=== PATIENT | male | born 1955 | race Caucasian/White ===

== ENCOUNTER → 2019-01-30 | Outpatient (CLI) | payer BC ==
--- NOTE | 2019-01-30 14:35 | DIREP ---
PROCEDURE:XRAY KNEE 4 VIEWS COMPARISON:None. INDICATIONS:M25.561 PAIN IN RIGHT KNEE FINDINGS: BONES:No acute fracture. JOINTS:Moderate patellofemoral compartment degenerative joint disease with cyuy-li-uowsysqb degenerative changes of the medial femoral tibial compartment and mild degenerative changes of the lateral femoral tibial compartment. SOFT TISSUES:No sizable suprapatellar joint effusion is identified. OTHER:Moderate superior patellar enthesopathy. CONCLUSION: 1. No acute osseous abnormality. 2. Tricompartmental osteoarthrosis without sizable suprapatellar joint effusion. Dictated by: Jarett Holman M.D. on 01/30/2019 at 02:32 PM
== END | disposition home or self-care (01) ==
LOC: RAD 11:37
PROVIDERS: ATTEND Internal Medicine
DX: M17.11 Unilateral primary osteoarthritis, right knee (principal)
CPT/HCPCS: 73564-RT

== ENCOUNTER → 2019-11-09 | Outpatient (CLI) | payer BC ==
--- NOTE | 2019-11-09 15:03 | PCM.EKG ---
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
== END | disposition home or self-care (01) ==
LOC: RT 11:27
PROVIDERS: ATTEND Internal Medicine
DX: I10 Essential (primary) hypertension (principal)
CPT/HCPCS: 93005

== ENCOUNTER → 2020-02-18 | Outpatient (CLI) | payer BC ==
[~2020-02-18] MED LIST: LEXISCAN IV ONE
--- NOTE | 2020-02-18 18:14 | STRESS ---
DATE OF SERVICE: 02/18/2020 CARDIAC STRESS TEST INDICATION FOR PROCEDURE: Chest pain. Baseline EKG shows sinus bradycardia. Stress EKG shows normal sinus rhythm, unchanged from baseline. At recovery, EKG shows normal sinus rhythm, unchanged from baseline. Baseline heart rate is noted to be 56 beats per minute and gurvinder to 78 beats per minute during stress. At recovery, blood pressure was noted to be 142/61. Baseline heart rate was noted to be 56 beats per minute and gurvinder to 78 beats per minute during stress. At recovery, the heart rate was noted to be 81 beats per minute. Blood pressure and heart rate were appropriate for stress. There were no significant symptoms noted during stress. There were no arrhythmias noted during stress. EKG portion of stress test is negative for myocardial ischemia. Nuclear images reveal homogeneous tracer distribution across all wall segments with no evidence of myocardial ischemia or infarction. Left ventricular ejection fraction is noted to be 74%. EDV is 103 mL, ESV is 27 mL. The left ventricle is normal in size. Gated motion images shows normal wall motion across all segments of the left ventricle. TID is noted to be 1.13. There is no evidence of diaphragmatic attenuation artifact. IMPRESSION: 1. Normal myocardial perfusion imaging with no evidence of myocardial ischemia or infarction. 2. Left ventricular ejection fraction of 74%. 3. This is a negative study. KHUSHI LEON D.O. DR: Jordin JOB# [id number]
== END | disposition home or self-care (01) ==
LOC: RAD 08:33
PROVIDERS: ATTEND Internal Medicine Interventional Cardiology
DX: I08.8 Other rheumatic multiple valve diseases (principal); I10 Essential (primary) hypertension
CPT/HCPCS: 78452; 93017; 93306; A9500; J2785

== ENCOUNTER → 2020-05-22 | Outpatient (CLI) | payer BC ==
--- NOTE | 2020-05-22 22:47 | PRP ---
DATE OF PROCEDURE: 05/22/2020 CAROTID DOPPLER ULTRASOUND INDICATION FOR PROCEDURE: Carotid bruit. RIGHT CAROTID ARTERY SYSTEM: The right common carotid artery has a peak systolic velocity of 103.76 cm/sec. The maximum right internal carotid artery peak systolic velocity is noted to be 106.5 cm/sec. The right external carotid artery has a peak systolic velocity of 222.7 cm/sec. Moderate atheromatous plaque is visualized in the right external carotid artery. The right vertebral artery has a peak systolic velocity of 59 cm/sec with antegrade flow visualized. The right ICA/CCA ratio is noted to be 1.0. LEFT CAROTID ARTERY SYSTEM: The peak systolic velocity of the left common carotid artery is noted to be 91.3 cm/sec. The maximum peak systolic velocity of the left internal carotid artery is noted to be 113.3 cm/sec. The left external carotid artery has a peak systolic velocity of 185 cm/sec. Moderate atheromatous plaque is visualized in the left external carotid artery. The left vertebral artery has a peak systolic velocity of 75 cm/sec with antegrade flow visualized. The left ICA/CCA ratio is noted to be 1.2. IMPRESSION: 1. There is no evidence of hemodynamically significant stenosis in the left internal carotid artery system. 2. There is no evidence of hemodynamically significant stenosis in the right internal carotid artery system. 3. Bilateral external carotid artery is noted to show moderate atheromatous plaques. 4. Bilateral ICA/CCA ratio are within normal limits. KHUSHI LEON D.O. DR: DELANO/michelle JOB# [id number]
--- NOTE | 2020-05-22 22:56 | PRP ---
DATE OF PROCEDURE: 05/22/2020 VENOUS MAPPING ULTRASOUND INDICATION FOR PROCEDURE: Chronic venous insufficiency. RIGHT LOWER EXTREMITY: The right greater saphenous vein measures 11 mm in its maximum diameter. Significant reflux is noted in the right GSV with maximum reflux of 3.2 seconds. The right small saphenous vein measures 2 mm in its maximum diameter. Significant reflux is noted in the right small saphenous vein with maximum reflux of 3.4 seconds. There is no evidence of deep vein thrombosis in the right lower extremity. An incidental finding of Davies cyst measuring 5.0 x 1.5 x 2.8 cm is visualized adjacent to the right popliteal vessels. LEFT LOWER EXTREMITY: The left greater saphenous vein measures 11 mm in its maximum diameter. Significant reflux is noted in the left GSV with maximum reflux of 5.4 seconds. The left small saphenous vein measures 4 mm in its maximum diameter. Significant reflux is also noted in the left small saphenous vein with maximum reflux of 1.1 seconds. There is no evidence of deep vein thrombosis in the left lower extremity. IMPRESSION: 1. The right greater saphenous vein is severely dilated and displays pathological reflux. 2. The right small saphenous vein is normal sized but displays pathological reflux. 3. The left greater saphenous vein is severely dilated and displays pathological reflux. 4. The left small saphenous vein is normal sized but displays pathological reflux. 5. There is no evidence of deep venous thrombosis in the bilateral lower extremities. 6. Incidental finding of a Davies cyst measuring 5.0 x 1.5 x 2.8 cm is visualized adjacent to the right popliteal vessels. RECOMMENDATION: Conservative measures including the use of compression stockings, leg elevation and exercise are recommended if clinically indicated. KHUSHI LEON D.O. DR: DELANO/michelle JOB# [id number]
== END | disposition home or self-care (01) ==
LOC: RAD 14:49
PROVIDERS: ATTEND Internal Medicine Interventional Cardiology
DX: I87.2 Venous insufficiency (chronic) (peripheral) (principal); R09.89 Other specified symptoms and signs involving the circulatory and respiratory systems; I10 Essential (primary) hypertension
CPT/HCPCS: 93880; 93970

== ENCOUNTER 2020-11-10 08:00 | Inpatient (IN) | payer BC ==
[2020-11-05 14:32] VITALS: BP 144/74
--- NOTE | 2020-11-05 14:48 | PCM.EKG ---
[facility] Test Date: 2020-11-05 Test Time: 15:46:59 Pat Name: RADHA MARCUS Department: Room: Gender: M Curriculum Development Coordinator: JUAN : 1955 Requested By: JAYLIN YATES Order Number: [id number] Reading MD: Measurements Intervals Leonard Rate: 60 P: 78 OR: 172 QRS: -37 QRSD: 108 T: 56 QT: 404 QTc: 404 Interpretive Statements Normal sinus rhythm Left axis deviation Compared to ECG 11/09/2019 11:34:14 Left-axis deviation now present Please click the below link to view image of tracing.
[2020-11-05 14:59] LABS: BASOPHIL % 0.8 % (0.0-0.2); EOSINOPHIL # 0.2 10^3/uL (0.0-0.2); LYMPHOCYTES # 1.39 10^3/uL1 (1.0-4.8); LYMPHOCYTES % 26.4 % (24.0-44.0); MEAN CORP HGB 31.1 pg (26-34); MONOCYTES # 0.6 10^3/uL (0.3-0.8); MONOCYTES % 11.6 % (5.0-12.0); NEUTROPHIL # 3.1 10^3/uL (1.8-7.7); PLATELET COUNT 313 10^3/uL (150-400); RED CELL DISTRIBUTION WIDTH 12.2 % (11.5-14.5)
[2020-11-05 15:15] LABS: CALCIUM 9.2 mg/dL (8.4-10.5); CARBON DIOXIDE 25.5 mmol/L (20.0-32)
[2020-11-10] VITALS (13 sets, daily range): BP systolic 142–168; BP diastolic 65–98
[~2020-11-10] VITALS: Ht 172.7 cm; Wt 84.4 kg
[~2020-11-10 08:00] MED LIST changes: +ANCEF ONE; +ASCO500C PO; +ASPI-667 PO; +BACTROBAN OINTMENT TP ONE; +BUSP7.5T5 PO; +CELE200C PO; +CHOL400T12 PO; +CITA10TA4 PO; +DILT180C64 PO; +ESOM20CA PO; +EZET10TA20 PO; +HYDR-3097 PO; +HYDR25TA9 PO; -LEXISCAN IV ONE; +LOSA100T14 PO; +NIFE30TA15 PO; +NS 100ML 100 ML IV ONE; +NS 250ML 250 ML IV ONE; +NS 3000ML IRR IR ONE; +ROSU10TA2 PO; +SODIUM CHLORIDE IRR BOTTLE IR ONE; +THYR60TA4 PO; +TRAM50TA PO; +VITA1CAP PO; +WATER ONE
[2020-11-10] MEDS ORDERED: LIDOCAINE 2% VIAL ONE (08:59)
[2020-11-10] MEDS ORDERED: TORADOL ONE (08:59)
[2020-11-10] MEDS ORDERED: CEPACOL SORE THROAT LOZENGE MM PRN (09:00)
[2020-11-10] MEDS ORDERED: LACTATED RINGERS 1,000 ML IV SCH (09:00)
[2020-11-10] MEDS ORDERED: VERSED ONE (09:00)
[2020-11-10] MEDS ORDERED: SUBLIMAZE ONE (09:00)
[2020-11-10] MEDS ORDERED: ULTRAM PO PRN (09:00)
[2020-11-10] MEDS ORDERED: ZOFRAN ONE (09:01)
[2020-11-10] MEDS ORDERED: DIPRIVAN IV ONE (09:01)
[2020-11-10] MEDS ORDERED: DECADRON ONE (09:02)
[2020-11-10] MEDS ORDERED: NAROPIN 0.5% 5 MG/ML VIAL ONE (09:02)
[2020-11-10] MEDS ORDERED: TRANEXAMIC ACID ONE (09:03)
--- NOTE | 2020-11-10 09:19 | PCM.HP ---
History of Present Illness Reason for Visit: (1) Osteoarthritis of right knee ICD Code: M17.11 - Unilateral primary osteoarthritis, right knee SNOMED: [id number] Was this Problem Present on Ad: Yes-DX present @time ofIP Hx of Present Illness patient complains of right knee pain worsening for the past 2 years. Patient complains of right knee pain for 5 years. Takes Celebrex and Advil for pain. Tried multiple cortisone injections and a Gel One injection with minimal relief. Tried hinge knee brace. Patient is an active adult and unable to do his activities of normal daily living. Travel History [place] RISK:Travel to/contact w: No Review of Systems Constitutional: No: Fever, Chills, Sweats, Weakness, Malaise, Other Eyes: No: Pain, Vision change, Conjunctivae inflammation, Eyelid inflammation, Other, Redness ENT: No: Ear pain, Ear discharge, Nose pain, Nose discharge, Nose congestion, Mouth pain, Mouth swelling, Throat pain, Throat swelling, Other Respiratory: No: Cough, Dry, Shortness of breath, SOB with excertion, Wheezing, Hemoptysis, Pleuritic Pain, Sputum, Wheezing, Other Cardiovascular: No: Chest Pain, Palpitations, Orthopnea, Paroxysmal Noc. Dyspnea, Edema, Lt Headedness, Other Gastrointestinal: No: Nausea, Vomiting, Abdominal Pain, Diarrhea, Constipation, Melena, Hematochezia, Other Genitourinary: No Dysuria, No Frequency, No Incontinence, No Hematuria, No Retention, No Other Musculoskeletal: leg pain (right knee) Skin: No: Rash, Lesions, Jaundice, Bruising, Other Neurological: No: Weakness, Numbness, Incoordination, Change in speech, Confusion, Seizures, Other Allergies: Coded Allergies: No Known Allergies (Unverified , 11/05/20) Scheduled Ascorbic Acid (Vitamin C), 2 CAP PO QD, (Reported) Aspirin (Aspirin), 1 TAB PO DAILY, (Reported) Celecoxib (Celebrex), 1 CAP PO BID, (Reported) Cholecalciferol (Vitamin D3) (Vitamin D-400), 5,000 UNITS PO Q7D, (Reported) Citalopram Hydrobromide (Citalopram Hbr), 1 TAB PO DAILY, (Reported) Diltiazem Hcl (Cartia Xt), 1 CAP PO QD, (Reported) Esomeprazole Magnesium (Nexium), 1 CAP PO DAILY, (Reported) Ezetimibe (Zetia), 1 TAB PO DAILY24, (Reported) Hydrochlorothiazide (Hydrochlorothiazide), 1 TAB PO DAILY, (Reported) Losartan Potassium (Losartan Potassium), 1 TAB PO DAILY, (Reported) Nifedipine (Nifedipine Er), 1 TAB PO DAILY, (Reported) Rosuvastatin 10MG (Crestor 10MG), 1 TAB PO DAILY, (Reported) Thyroid,Pork (Consumer Loan Underwriter Thyroid), 1 TAB PO QD, (Reported) Vitamin B Complex (Vitamin B Complex), 1 EACH PO DAILY24, (Reported) Scheduled PRN Buspirone Hcl (Buspirone Hcl), 1 TAB PO BID PRN for ANXIETY, (Reported) Hydrocodone Bit/Acetaminophen (Roscoe 5-325), 1 TAB PO BID PRN for PAIN 4 - 6, (Reported) Tramadol Hcl (Tramadol Hcl), 1 TAB PO BID PRN for PAIN 4 - 6, (Reported) VTE VTE Risk Total Score: >5 VTE Risk Score VTE Risk: Score 0-1 = Low Risk (Aggressive mobilization; early ambulation; no VTE prophylaxis required) Score 2: Moderate Risk (Intermittent/Pneumatic Compression Device OR Lovenox/Heparin/Coumadin) Score 3-4: High Risk (Intermittent/Pneumatic Compression Device AND Lovenox/Heparin/Coumadin) Score > or =5: Highest Risk (Intermittent/Pneumatic Compression Device AND Lovenox/Heparin/Coumadin) VTE VTE Present on Admission: No Currently receiving anticoagul: No VTE Risk Total Score: >5 Exam General Appearance: Alert, Oriented X3, Cooperative, No acute distress HEENT: Atraumatic, PERRLA, EOMI, Mucous membr. moist/pink Respiratory: Clear to auscultation, Normal air movement Cardiovascular: Regular rate Abdominal: Normal bowel sounds, Soft, No tenderness Extremities: No clubbing, No cyanosis, No edema, Normal pulses, Other (right knee has full extension and 120 degrees flexion. Obvious varus deformilty grade 1 laxity MCL. Muscle strength 5/5) Skin: No rash, No breakdown, No lesions Neuro: Normal gait, Normal speech, Normal tone Psych/Mental Status: Mental status NL, Mood NL Assessment/Plan Assessment/Plan Problems: (1) Osteoarthritis of right knee Status: Chronic ICD Code: M17.11 - Unilateral primary osteoarthritis, right knee SNOMED: [id number] Patient History: Congestive heart failure G8 MOTHER, , Age:60 years and older FH: breast cancer G8 SISTER FH: congenital heart problem G8 SISTER No known health problems G8 SISTER 19 CHILD 19 CHILD No Family History of: Alzheimer's disease Asthma Cerebrovascular disorder Chronic obstructive pulmonary disease Diabetes insipidus Diabetes mellitus Hypertension Parkinson's disease Plan Right knee OA- surgery of right total knee arthroplasty is planned for today 11/10/20. admit inpatient to the med/surg floor continue medications as prescribed PT/OT eval and treat. WBAT RLE, CPM, walker monitor incision monitor pain fall and safety precautions Problem Qualifiers (1) Osteoarthritis of right knee: Osteoarthritis type: primary Qualified Codes: M17.11 - Unilateral primary osteoarthritis, right knee GHULAM HUTCHINSON NP Nov 10, 2020 09:19
[2020-11-10] MEDS ORDERED: NORCO 5MG PO PRN (09:30)
[2020-11-10] MEDS ORDERED: CARDIZEM CD PO SCH (09:30)
[2020-11-10] MEDS ORDERED: MARCAINE SPINAL AMPUL IJ ONE (09:30)
[2020-11-10] MEDS ORDERED: ARMOUR THYROID PO SCH (09:30)
[2020-11-10] MEDS ORDERED: NEURONTIN PO ONE (10:00)
[2020-11-10] MEDS ORDERED: DECADRON IV ONE (10:00)
[2020-11-10] MEDS ORDERED: TYLENOL PO ONE (10:00)
[2020-11-10] MEDS ORDERED: ULTRAM PO ONE (10:00)
[2020-11-10] MEDS ORDERED: CELEBREX PO ONE (10:00)
[2020-11-10] MEDS ORDERED: DEXAMETHASONE 10 MG/ML VIAL ONE (10:04)
[2020-11-10] MEDS: LACTATED RINGERS 1,000 ML IV SCH ×2 (10:20→16:35)
--- NOTE | 2020-11-10 11:13 | NUR ---
DISCHARGE PLAN CM VISITED WITH PATIENT REGARDING D/C PLAN AND GOAL. PATIENT LIVES AT HOME ALONE. HIS SISTER WILL BE IN TOWN ON TUESDAY TO HELP HIM AROUND HIS HOUSE AND HE HAS SOME FRIENDS THAT WILL CHECK UP ON HIM. HE HAS A P/B CUFF, SC, AND PULSE OXIMETER IN PLACE. HE WILL NEED A WALKER ON D/C. ORDER FAXED TO [facility]. HE REQUESTED TO F/U WITH MORELIA YATES AT [facility] PT. APPOINTMENT IS SCHEDULED FOR TUESDAY AT 3PM. DISCHARGE GOAL IS FOR PATIENT TO D/C BACK HOME AND F/U WITH [facility] PT AN OP.
[2020-11-10] MEDS ORDERED: EXPAREL 266 MG/20 ML VIAL IJ ONE (12:00)
[2020-11-10] MEDS ORDERED: ANCEF 2 GM/D5W 50ML IV SCH (14:00)
--- NOTE | 2020-11-10 14:47 | OPH ---
DATE OF SURGERY: 11/10/2020 PREOPERATIVE DIAGNOSIS: Osteoarthritis of the right knee. POSTOPERATIVE DIAGNOSIS: Osteoarthritis of the right knee. OPERATIVE PROCEDURE: Right total knee arthroplasty using Medacta Sphere knee, size 4 femur, a size 5 tibia, 10 mm insert, a size 2 dome patella. All components were cemented. SURGEON: Prem Gonzalez MD ANESTHESIA: Spinal. TOURNIQUET TIME: 67 minutes at 300 mmHg. DRAINS: None. BLOOD LOSS: 400 mL. DESCRIPTION OF INDICATIONS: A 65-year-old male with pain about the right knee for the last 5 years. Pain is getting progressively worse. He takes Celebrex as well as Advil for the pain. He has had multiple cortisone injections as well as Gel-One injections. He has tried home physical therapy exercises as well as off the shelf bracing. He is unable to do his activities of daily living because of pain about the knee. Right knee has -10 degrees of full extension with 120 degrees of flexion, obvious varus deformity, grade 1 laxity of his medial collateral ligament. X-rays show that he is [id number]-xz-oirm medially as well as about the patellofemoral joint. The patient was taken to the operating room today for right total knee arthroplasty for pain relief. DESCRIPTION OF PROCEDURE: The patient was placed on the operating table in the supine position after spinal anesthetic was given. The right thigh was padded and a tourniquet was applied. Right lower extremity was then sterilely prepped and draped. The patient had the leg exsanguinated with an Esmarch and the tourniquet was inflated to 300 mmHg. The knee was flexed to 90 degrees. An anterior incision was made. Incision was taken through the skin and the subcutaneous tissues. Full thickness flaps were developed medially and laterally. Medial parapatellar arthrotomy was performed. The patella was deviated laterally. The capsule and MCL were released around the posterior medial corner of the proximal tibia in a subperiosteal manner. Medial and lateral meniscectomies were performed. The anterior and posterior cruciate ligaments were excised. The patient had intramedullary drill hole made about the distal femur. The cutting block that was attached to the intramedullary michaela was placed about the distal end of the femur once the intramedullary michaela was placed down the shaft of the femur. The cutting block was then pinned into position. It was set at 9 mm and 6 degrees of valgus. Distal femoral cut was then made with the power saw. The tibia was subluxed anteriorly with a bent knee retractor. Intramedullary drill hole was made about the tibia and the intramedullary michaela was placed down the shaft of the tibia. The cutting guide for the tibia was then adjusted for posterior slope, varus, valgus rotation and depth of cut. Once all the parameters were met, the cutting block was pinned into position. Tibial cut was then made with the power saw. The attention was turned back to the femur. The #2 jig was applied and it measured a size 4. The size 4 cutting jig was placed about the distal femur and held into position with 2 screws and 2 pins. The anterior and posterior femoral cuts as well as the chamfer cuts were made. The patient then had the tibia trialled with a size 5. There was good coverage with the 5 tibial component. The central drill hole was made and the cruciate punch was used to stabilize the tibial component. The patient then had a trial reduction done with a 5 tibia, 4 femur, a 10 mm insert. The knee went out into full extension and 120 degrees of passive flexion. There was excellent medial and lateral stability throughout the range of motion. He had good anterior and posterior stability at 90 degrees of flexion. The patella was everted. It was cut at 7 mm. There were still 15 mm of patella left. The drill holes were made and size 2 patella had the best fit. There was good tracking of the patella with flexion and extension. Final medial and lateral femoral drill holes were made. The femoral sulcus cut was made. The trial components were then all removed from the knee. The Exparel was injected into the soft tissue. The knee was copiously irrigated and the bone ends were dried. A size 5 tibial component was cemented into position. The 10 mm insert was impacted into position and secured with an anterior screw. The size 4 femoral component was cemented as well as the patella. Once all the excess cement was removed and the cement had hardened, then the tourniquet was released. The bleeding was controlled with the Aquamantys device. The joint had been irrigated with Betadine-containing solution for 3 minutes. The capsule was then closed with a #2 PDS in an interrupted [id number] manner. The subcutaneous was closed with a 2-0 barbed Monocryl in a running manner and the skin was closed with modesta. A suction Prevena type dressing was applied, reinforced with 4 x 4's, cast padding and an Eduard wrap. The patient was sent to recovery in stable condition. Prem Gonzalez MD DR: CHRISTOPHER/michelle JOB# [id number]
[2020-11-10] MEDS ORDERED: TORADOL IV PRN (15:00)
--- NOTE | 2020-11-10 15:10 | NUR ---
PATIENT ARRIVED TO UNIT VIA BED. S/P R TKA. NON REMOVABLE PREVENA DRESSING CDI. ICEMAN IN PLACE. BILAT FOOT SCDS ON. CMS+. ZAVALA CATHETER PATENT, DRAINING CLEAR, STRAW COLORED URINE. REPORT RECEIVED FROM MARY BETH TELLO.
[2020-11-10] MEDS: PEPCID PO SCH (15:55)
[2020-11-10] MEDS: COLACE PO SCH (15:55)
[2020-11-10] MEDS: ZETIA PO SCH (15:55)
--- NOTE | 2020-11-10 16:09 | PRM.PN ---
Subjective Subjective Date: Nov 10, 2020 Time: 16:08 Subjective Awake and alert No pain VSS NVM+ Able to perform SLR Stable Patient History: Congestive heart failure G8 MOTHER, , Age:60 years and older FH: breast cancer G8 SISTER FH: congenital heart problem G8 SISTER No known health problems G8 SISTER 19 CHILD 19 CHILD No Family History of: Alzheimer's disease Asthma Cerebrovascular disorder Chronic obstructive pulmonary disease Diabetes insipidus Diabetes mellitus Hypertension Parkinson's disease VTE VTE Risk Total Score: >5 VTE Risk Score VTE Risk: Score 0-1 = Low Risk (Aggressive mobilization; early ambulation; no VTE prophylaxis required) Score 2: Moderate Risk (Intermittent/Pneumatic Compression Device OR Lovenox/Heparin/Coumadin) Score 3-4: High Risk (Intermittent/Pneumatic Compression Device AND Lovenox/Heparin/Coumadin) Score > or =5: Highest Risk (Intermittent/Pneumatic Compression Device AND Lovenox/Heparin/Coumadin) Review of Systems Constitutional: No: Fever, Chills, Sweats, Weakness, Malaise, Other Eyes: No: Pain, Vision change, Conjunctivae inflammation, Eyelid inflammation, Other, Redness ENT: No: Ear pain, Ear discharge, Nose pain, Nose discharge, Nose congestion, Mouth pain, Mouth swelling, Throat pain, Throat swelling, Other Respiratory: No: Cough, Dry, Shortness of breath, SOB with excertion, Wheezing, Hemoptysis, Pleuritic Pain, Sputum, Wheezing, Other Cardiovascular: No: Chest Pain, Palpitations, Orthopnea, Paroxysmal Noc. Dyspnea, Edema, Lt Headedness, Other Gastrointestinal: No: Nausea, Vomiting, Abdominal Pain, Diarrhea, Constipation, Melena, Hematochezia, Other Genitourinary: No Dysuria, No Frequency, No Incontinence, No Hematuria, No Retention, No Other Musculoskeletal: leg pain (right knee) Skin: No: Rash, Lesions, Jaundice, Bruising, Other Neurological: No: Weakness, Numbness, Incoordination, Change in speech, Confusion, Seizures, Other Allergies: Coded Allergies: No Known Allergies (Unverified , 11/05/20) Scheduled Ascorbic Acid (Vitamin C), 2 CAP PO QD, (Reported) Aspirin (Aspirin), 1 TAB PO DAILY, (Reported) Celecoxib (Celebrex), 1 CAP PO BID, (Reported) Cholecalciferol (Vitamin D3) (Vitamin D-400), 5,000 UNITS PO Q7D, (Reported) Citalopram Hydrobromide (Citalopram Hbr), 1 TAB PO DAILY, (Reported) Diltiazem Hcl (Cartia Xt), 1 CAP PO QD, (Reported) Esomeprazole Magnesium (Nexium), 1 CAP PO DAILY, (Reported) Ezetimibe (Zetia), 1 TAB PO DAILY24, (Reported) Hydrochlorothiazide (Hydrochlorothiazide), 1 TAB PO DAILY, (Reported) Losartan Potassium (Losartan Potassium), 1 TAB PO DAILY, (Reported) Nifedipine (Nifedipine Er), 1 TAB PO DAILY, (Reported) Rosuvastatin 10MG (Crestor 10MG), 1 TAB PO DAILY, (Reported) Thyroid,Pork ([employer] Thyroid), 1 TAB PO QD, (Reported) Vitamin B Complex (Vitamin B Complex), 1 EACH PO DAILY24, (Reported) Scheduled PRN Buspirone Hcl (Buspirone Hcl), 1 TAB PO BID PRN for ANXIETY, (Reported) Hydrocodone Bit/Acetaminophen ([place] 5-325), 1 TAB PO BID PRN for PAIN 4 - 6, (Reported) Tramadol Hcl (Tramadol Hcl), 1 TAB PO BID PRN for PAIN 4 - 6, (Reported) Objective Vitals and I/O Vital Sign - Last 24 Hours 11/10/20 11/10/20 11/10/20 11/10/20 09:58 09:58 14:28 14:38 Temp 97.6 97.2 Pulse 60 66 Resp 16 18 18 B/P (MAP) 156/65 (95) 162/76 (104) 165/90 (115) Pulse Ox 98 98 98 O2 Delivery Room Air Room Air Room Air Room Air 11/10/20 11/10/20 14:48 14:58 Pulse 66 65 Resp 18 18 B/P (MAP) 165/98 (120) 143/90 (107) Pulse Ox 98 97 O2 Delivery Room Air Room Air General: Alert, Oriented X3, Cooperative, No acute distress HEENT: Atraumatic, PERRLA, EOMI, Mucous membr. moist/pink Lungs: Clear to auscultation, Normal air movement Heart: Regular rate Abdomen: Normal bowel sounds, Soft, No tenderness Extremities: No clubbing, No cyanosis, No edema, Normal pulses, Other (right knee has full extension and 120 degrees flexion. Obvious varus deformilty grade 1 laxity MCL. Muscle strength 5/5) Neuro: Normal gait, Normal speech, Normal tone Psych/Mental Status: Mental status NL, Mood NL All Results(Lab/Rad) Current Medications Medications (Trade) Dose Ordered Sig/Lisa Route PRN Reason Start Time Stop Time Status Last Admin Dose Admin Mupirocin (Bactroban Ointment) 1 gm OT ONCE TP 11/10/20 06:00 11/10/20 10:22 DC 11/10/20 10:30 Sodium Chloride 100 ml @ ud STK-MED ONCE IV 11/08/20 12:18 11/08/20 12:18 DC Cefazolin Sodium (Ancef) 1 gm STK-MED ONCE .ROUTE 11/08/20 12:18 11/08/20 12:18 DC Sodium Chloride (Sodium Chloride Irr Bottle) 1,000 ml STK-MED ONCE IR 11/10/20 07:45 11/10/20 07:46 DC Sterile Water (Water) 1,000 ml STK-MED ONCE .ROUTE 11/10/20 07:45 11/10/20 07:46 DC Sodium Chloride 100 ml @ ud STK-MED ONCE IV 11/10/20 07:45 11/10/20 07:46 DC Sodium Chloride 250 ml @ ud STK-MED ONCE IV 11/10/20 07:46 11/10/20 07:46 DC Sodium Chloride (NS 3000ml Irr) 3,000 ml STK-MED ONCE IR 11/10/20 07:46 11/10/20 07:46 DC Lidocaine HCl (Lidocaine 2% Vial) 500 mg STK-MED ONCE .ROUTE 11/10/20 08:59 11/10/20 08:59 DC Ketorolac Tromethamine (Toradol) 30 mg STK-MED ONCE .ROUTE 11/10/20 08:59 11/10/20 08:59 DC Fentanyl Citrate (Sublimaze) 50 mcg STK-MED ONCE .ROUTE 11/10/20 09:00 11/10/20 09:01 DC Propofol (Diprivan) 200 mg STK-MED ONCE IV 11/10/20 09:01 11/10/20 09:01 DC Ondansetron HCl (Zofran) 4 mg STK-MED ONCE .ROUTE 11/10/20 09:01 11/10/20 09:02 DC Ropivacaine (Naropin 0.5% 5 Mg/ml Vial) 150 mg STK-MED ONCE .ROUTE 11/10/20 09:02 11/10/20 09:03 DC Tranexamic Acid (Tranexamic Acid) 1,000 mg STK-MED ONCE .ROUTE 11/10/20 09:03 11/10/20 09:03 DC Tramadol HCl (Ultram) 50 mg Q6H PO 11/10/20 09:00 12/10/20 08:59 Tramadol HCl (Ultram) 100 mg Q6H PRN PO PAIN 4 - 6 11/10/20 09:00 12/10/20 08:59 Rivaroxaban (Xarelto) 10 mg DAILY PO 11/11/20 09:00 12/11/20 08:59 Docusate Sodium (Colace) 100 mg DAILY PO 11/10/20 09:00 12/10/20 08:59 Throat Lozenges (Cepacol Sore Throat Lozenge) 1 each PRN PRN MM SORE THROAT 11/10/20 09:00 12/10/20 08:59 Famotidine (Pepcid) 20 mg DAILY PO 11/10/20 09:00 12/10/20 08:59 Cefazolin Sodium/ Dextrose (Ancef 2 Gm/D5W 50ml) 2 gm Q8 IV 11/10/20 14:00 11/10/20 12:00 DC Citalopram Hydrobromide (CeleXA) 10 mg DAILY PO 11/11/20 09:00 12/11/20 08:59 Diltiazem HCl (Cardizem Cd) 180 mg QD PO 11/10/20 09:30 11/10/20 14:44 DC EZETIMIBE (Zetia) 10 mg DAILY PO 11/10/20 09:30 12/10/20 09:29 Hydrochlorothiazide (Hydrochlorothiazide) 25 mg DAILY PO 11/11/20 09:00 12/11/20 08:59 Acetaminophen/ Hydrocodone Bitart ([place] 5mg) 1 ea BID PRN PO PAIN 4 - 6 11/10/20 09:30 12/10/20 09:29 Losartan Potassium (Cozaar) 100 mg DAILY PO 11/11/20 09:00 12/11/20 08:59 Nifedipine (Procardia) 30 mg DAILY PO 11/11/20 09:00 12/11/20 08:59 Rosuvastatin Calcium (Crestor) 10 mg DAILY PO 11/11/20 09:00 12/11/20 08:59 Thyroid ([place] Thyroid) 60 mg QD PO 11/10/20 09:30 11/10/20 14:43 DC Bupivacaine HCl/ Dextrose ([place] Spinal Ampul) 2 ml STK-MED ONCE IJ 11/10/20 09:30 11/10/20 09:30 DC Celecoxib (Celebrex) 400 mg OT ONCE PO 11/10/20 10:00 11/10/20 10:22 DC 11/10/20 11:04 Gabapentin (Neurontin) 600 mg OT ONCE PO 11/10/20 10:00 11/10/20 10:35 DC 11/10/20 11:04 Tramadol HCl (Ultram) 100 mg OT ONCE PO 11/10/20 10:00 11/10/20 10:36 DC 11/10/20 11:05 Acetaminophen (Tylenol) 1,000 mg OT ONCE PO 11/10/20 10:00 11/10/20 11:36 DC 11/10/20 11:05 Cefazolin Sodium/ Dextrose 50 ml @ 50 mls/hr Q8 IV 11/10/20 20:00 11/11/20 06:59 Ketorolac Tromethamine (Toradol) 30 mg Q6H PRN IV PAIN 7 - 10 11/10/20 15:00 11/15/20 14:59 Acetaminophen (Tylenol) 1,000 mg Q6HR PO 11/10/20 18:00 12/10/20 17:59 Thyroid ([place] Thyroid) 60 mg DAILY PO 11/11/20 09:00 12/10/20 09:29 Diltiazem HCl (Cardizem Cd) 180 mg DAILY PO 11/11/20 09:00 12/10/20 09:29 Course Vitals & review Data Vital Sign - Last 24 Hours 11/10/20 11/10/20 11/10/20 11/10/20 09:58 09:58 14:28 14:38 Temp 97.6 97.2 Pulse 60 66 Resp 16 18 18 B/P (MAP) 156/65 (95) 162/76 (104) 165/90 (115) Pulse Ox 98 98 98 O2 Delivery Room Air Room Air Room Air Room Air 11/10/20 11/10/20 14:48 14:58 Pulse 66 65 Resp 18 18 B/P (MAP) 165/98 (120) 143/90 (107) Pulse Ox 98 97 O2 Delivery Room Air Room Air Current Medications Medications (Trade) Dose Ordered Sig/Lisa PRN Reason Start Time Stop Time Status Last Admin Acetaminophen (Tylenol) 1,000 mg Q6HR 11/10/20 18:00 12/10/20 17:59 Acetaminophen/ Hydrocodone Bitart ([place] 5mg) 1 ea BID PRN PAIN 4 - 6 11/10/20 09:30 12/10/20 09:29 Cefazolin Sodium/ Dextrose 50 ml @ 50 mls/hr Q8 11/10/20 20:00 11/11/20 06:59 Citalopram Hydrobromide (CeleXA) 10 mg DAILY 11/11/20 09:00 12/11/20 08:59 Diltiazem HCl (Cardizem Cd) 180 mg DAILY 11/11/20 09:00 12/10/20 09:29 Docusate Sodium (Colace) 100 mg DAILY 11/10/20 09:00 12/10/20 08:59 EZETIMIBE (Zetia) 10 mg DAILY 11/10/20 09:30 12/10/20 09:29 Famotidine (Pepcid) 20 mg DAILY 11/10/20 09:00 12/10/20 08:59 Hydrochlorothiazide (Hydrochlorothiazide) 25 mg DAILY 11/11/20 09:00 12/11/20 08:59 Ketorolac Tromethamine (Toradol) 30 mg Q6H PRN PAIN 7 - 10 11/10/20 15:00 11/15/20 14:59 Losartan Potassium (Cozaar) 100 mg DAILY 11/11/20 09:00 12/11/20 08:59 Nifedipine (Procardia) 30 mg DAILY 11/11/20 09:00 12/11/20 08:59 Rivaroxaban (Xarelto) 10 mg DAILY 11/11/20 09:00 12/11/20 08:59 Rosuvastatin Calcium (Crestor) 10 mg DAILY 11/11/20 09:00 12/11/20 08:59 Throat Lozenges (Cepacol Sore Throat Lozenge) 1 each PRN PRN SORE THROAT 11/10/20 09:00 12/10/20 08:59 Thyroid ([place] Thyroid) 60 mg DAILY 11/11/20 09:00 12/10/20 09:29 Tramadol HCl (Ultram) 50 mg Q6H 11/10/20 09:00 12/10/20 08:59 Tramadol HCl (Ultram) 100 mg Q6H PRN PAIN 4 - 6 11/10/20 09:00 12/10/20 08:59 O2 Sat by Pulse Oximetry: 97 Assessment/Plan Assessment/Plan Assessment/Plan Right knee OA- surgery of right total knee arthroplasty is planned for today 11/10/20. admit inpatient to the med/surg floor continue medications as prescribed PT/OT eval and treat. WBAT RLE, CPM, walker monitor incision monitor pain fall and safety precautions Plan Right knee OA- surgery of right total knee arthroplasty is planned for today 11/10/20. admit inpatient to the med/surg floor continue medications as prescribed PT/OT eval and treat. WBAT RLE, CPM, walker monitor incision monitor pain fall and safety precautions JUDY MELENDEZ MD Nov 10, 2020 16:09
--- NOTE | 2020-11-10 16:10 | DIREP ---
PROCEDURE:XRAY KNEE 2 VWS-RT COMPARISON:None. INDICATIONS:POST OP KNEE FINDINGS: BONES:Knee replacement seen. JOINTS:Alignment appears appropriate. SOFT TISSUES:[place] anteriorly. Soft tissue swelling and gas noted. OTHER:No additional findings. CONCLUSION:Knee replacement as above. Dictated by: Jose Mello MD on 11/10/2020 at 04:07 PM
[2020-11-10] MEDS: ULTRAM PO SCH ×3 (16:34→20:12)
[2020-11-10] MEDS: TYLENOL PO SCH (18:07)
[2020-11-10] MEDS: ANCEF 2 GM/D5W 50ML 50 ML IV SCH ×2 (20:12→22:00)
[2020-11-11] MEDS: TYLENOL PO SCH ×5 (00:19→23:05)
[2020-11-11 00:24] VITALS: BP 146/78
[2020-11-11] MEDS: LACTATED RINGERS 1,000 ML IV SCH ×3 (02:03→21:30)
[2020-11-11] MEDS: ULTRAM PO SCH ×4 (03:08→21:30)
[2020-11-11] MEDS: ANCEF 2 GM/D5W 50ML 50 ML IV SCH (03:08)
[2020-11-11 04:03] VITALS: BP 165/83
[2020-11-11 04:51] LABS: RED CELL DISTRIBUTION WIDTH 12.1 % (11.5-14.5)
[2020-11-11 08:22] VITALS: BP 174/79
--- NOTE | 2020-11-11 08:35 | PCM.HP ---
History of Present Illness Reason for Visit: (1) Osteoarthritis of right knee ICD Code: M17.11 - Unilateral primary osteoarthritis, right knee SNOMED: [id number] Was this Problem Present on Ad: Yes-DX present @time ofIP Hx of Present Illness patient complains of right knee pain worsening for the past 2 years. Patient complains of right knee pain for 5 years. Takes Celebrex and Advil for pain. Tried multiple cortisone injections and a Gel One injection with minimal relief. Tried hinge knee brace. Patient is an active adult and unable to do his activities of normal daily living. Past Medical History PMH-Cardiac: (1) Osteoarthritis of right knee Status: Chronic ICD Code: M17.11 - Unilateral primary osteoarthritis, right knee SNOMED: [id number] [facility]-ANODIZER: (1) Osteoarthritis of right knee Status: Chronic ICD Code: M17.11 - Unilateral primary osteoarthritis, right knee SNOMED: [id number] [facility]-GI: (1) Osteoarthritis of right knee ICD Code: M17.11 - Unilateral primary osteoarthritis, right knee SNOMED: [id number] [facility]-Heme/Onc: (1) Osteoarthritis of right knee Status: Chronic ICD Code: M17.11 - Unilateral primary osteoarthritis, right knee SNOMED: [id number] [facility]-Hepatobiliary: (1) Osteoarthritis of right knee Status: Chronic ICD Code: M17.11 - Unilateral primary osteoarthritis, right knee SNOMED: [id number] [facility]-Psych: (1) Osteoarthritis of right knee Status: Chronic ICD Code: M17.11 - Unilateral primary osteoarthritis, right knee SNOMED: [id number] [facility]-Musculoskeletal: (1) Osteoarthritis of right knee Status: Chronic ICD Code: M17.11 - Unilateral primary osteoarthritis, right knee SNOMED: [id number] [facility]-Rheumatologic: (1) Osteoarthritis of right knee Status: Chronic ICD Code: M17.11 - Unilateral primary osteoarthritis, right knee SNOMED: [id number] PM-Infectious disease: (1) Osteoarthritis of right knee Status: Chronic ICD Code: M17.11 - Unilateral primary osteoarthritis, right knee SNOMED: [id number] PM-ENT: (1) Osteoarthritis of right knee Status: Chronic ICD Code: M17.11 - Unilateral primary osteoarthritis, right knee SNOMED: [id number] [facility]-Renal/: (1) Osteoarthritis of right knee Status: Chronic ICD Code: M17.11 - Unilateral primary osteoarthritis, right knee SNOMED: [id number] [facility]-Endocrine: (1) Osteoarthritis of right knee Status: Chronic ICD Code: M17.11 - Unilateral primary osteoarthritis, right knee SNOMED: [id number] [facility]-Grav: (1) Osteoarthritis of right knee Status: Chronic ICD Code: M17.11 - Unilateral primary osteoarthritis, right knee SNOMED: [id number] [facility]-Para: (1) Osteoarthritis of right knee Status: Chronic ICD Code: M17.11 - Unilateral primary osteoarthritis, right knee SNOMED: [id number] [facility]-Ab: (1) Osteoarthritis of right knee Status: Chronic ICD Code: M17.11 - Unilateral primary osteoarthritis, right knee SNOMED: [id number] Travel History EBOLA RISK:Travel to/contact w: No Review of Systems Constitutional: No: Fever, Chills, Sweats, Weakness, Malaise, Other Eyes: No: Pain, Vision change, Conjunctivae inflammation, Eyelid inflammation, Other, Redness ENT: No: Ear pain, Ear discharge, Nose pain, Nose discharge, Nose congestion, Mouth pain, Mouth swelling, Throat pain, Throat swelling, Other Respiratory: No: Cough, Dry, Shortness of breath, SOB with excertion, Wheezing, Hemoptysis, Pleuritic Pain, Sputum, Wheezing, Other Cardiovascular: No: Chest Pain, Palpitations, Orthopnea, Paroxysmal Noc. Dyspnea, Edema, Lt Headedness, Other Gastrointestinal: No: Nausea, Vomiting, Abdominal Pain, Diarrhea, Constipation, Melena, Hematochezia, Other Genitourinary: No Dysuria, No Frequency, No Incontinence, No Hematuria, No Retention, No Other Musculoskeletal: leg pain (right knee) Skin: No: Rash, Lesions, Jaundice, Bruising, Other Neurological: No: Weakness, Numbness, Incoordination, Change in speech, Confusion, Seizures, Other Allergies: Coded Allergies: No Known Allergies (Unverified , 11/05/20) Scheduled Ascorbic Acid (Vitamin C), 2 CAP PO QD, (Reported) Aspirin (Aspirin), 1 TAB PO DAILY, (Reported) Celecoxib (Celebrex), 1 CAP PO BID, (Reported) Cholecalciferol (Vitamin D3) (Vitamin D-400), 5,000 UNITS PO Q7D, (Reported) Citalopram Hydrobromide (Citalopram Hbr), 1 TAB PO DAILY, (Reported) Diltiazem Hcl (Cartia Xt), 1 CAP PO QD, (Reported) Esomeprazole Magnesium (Nexium), 1 CAP PO DAILY, (Reported) Ezetimibe (Zetia), 1 TAB PO DAILY24, (Reported) Hydrochlorothiazide (Hydrochlorothiazide), 1 TAB PO DAILY, (Reported) Losartan Potassium (Losartan Potassium), 1 TAB PO DAILY, (Reported) Nifedipine (Nifedipine Er), 1 TAB PO DAILY, (Reported) Rosuvastatin 10MG (Crestor 10MG), 1 TAB PO DAILY, (Reported) Thyroid,Pork ([employer] Thyroid), 1 TAB PO QD, (Reported) Vitamin B Complex (Vitamin B Complex), 1 EACH PO DAILY24, (Reported) Scheduled PRN Buspirone Hcl (Buspirone Hcl), 1 TAB PO BID PRN for ANXIETY, (Reported) Hydrocodone Bit/Acetaminophen ([place] 5-325), 1 TAB PO BID PRN for PAIN 4 - 6, (Reported) Tramadol Hcl (Tramadol Hcl), 1 TAB PO BID PRN for PAIN 4 - 6, (Reported) VTE VTE Risk Total Score: >5 VTE Risk Score VTE Risk: Score 0-1 = Low Risk (Aggressive mobilization; early ambulation; no VTE prophylaxis required) Score 2: Moderate Risk (Intermittent/Pneumatic Compression Device OR Lovenox/Heparin/Coumadin) Score 3-4: High Risk (Intermittent/Pneumatic Compression Device AND Lovenox/Heparin/Coumadin) Score > or =5: Highest Risk (Intermittent/Pneumatic Compression Device AND Lovenox/Heparin/Coumadin) VTE VTE Present on Admission: No Currently receiving anticoagul: No VTE Risk Total Score: >5 Exam Vital Signs Vital Signs Date Time Temp Pulse Resp B/P (MAP) Pulse Ox O2 Delivery O2 Flow Rate FiO2 11/11/20 08:22 97.7 65 18 174/79 (110) 98 11/11/20 07:51 Room Air Assessment/Plan Assessment/Plan Assessment/Plan Right knee OA- surgery of right total knee arthroplasty is planned for today 11/10/20. admit inpatient to the med/surg floor continue medications as prescribed PT/OT eval and treat. WBAT RLE, CPM, walker monitor incision monitor pain fall and safety precautions Patient History: Congestive heart failure G8 MOTHER, , Age:60 years and older FH: breast cancer G8 SISTER FH: congenital heart problem G8 SISTER No known health problems G8 SISTER 19 CHILD 19 CHILD No Family History of: Alzheimer's disease Asthma Cerebrovascular disorder Chronic obstructive pulmonary disease Diabetes insipidus Diabetes mellitus Hypertension Parkinson's disease Plan Right knee OA- surgery of right total knee arthroplasty is planned for today 11/10/20. admit inpatient to the med/surg floor continue medications as prescribed PT/OT eval and treat. WBAT RLE, CPM, walker monitor incision monitor pain fall and safety precautions Problem Qualifiers (1) Osteoarthritis of right knee: Osteoarthritis type: primary Qualified Codes: M17.11 - Unilateral primary osteoarthritis, right knee GHULAM HUTCHINSON NP Nov 11, 2020 08:35
--- NOTE | 2020-11-11 08:38 | PRM.PN ---
Subjective Subjective Date: Nov 11, 2020 Time: 08:35 Subjective patient sitting in bed, appetite good pain controlled right knee dressing intact VSS, labs reviewed- stable PT/OT will eval patient today Patient History: Congestive heart failure G8 MOTHER, , Age:60 years and older FH: breast cancer G8 SISTER FH: congenital heart problem G8 SISTER No known health problems G8 SISTER 19 CHILD 19 CHILD No Family History of: Alzheimer's disease Asthma Cerebrovascular disorder Chronic obstructive pulmonary disease Diabetes insipidus Diabetes mellitus Hypertension Parkinson's disease VTE VTE Risk Total Score: >5 VTE Risk Score VTE Risk: Score 0-1 = Low Risk (Aggressive mobilization; early ambulation; no VTE prophylaxis required) Score 2: Moderate Risk (Intermittent/Pneumatic Compression Device OR Lovenox/Heparin/Coumadin) Score 3-4: High Risk (Intermittent/Pneumatic Compression Device AND Lovenox/Heparin/Coumadin) Score > or =5: Highest Risk (Intermittent/Pneumatic Compression Device AND Lovenox/Heparin/Coumadin) Review of Systems Constitutional: No: Fever, Chills, Sweats, Weakness, Malaise, Other Eyes: No: Pain, Vision change, Conjunctivae inflammation, Eyelid inflammation, Other, Redness ENT: No: Ear pain, Ear discharge, Nose pain, Nose discharge, Nose congestion, Mouth pain, Mouth swelling, Throat pain, Throat swelling, Other Respiratory: No: Cough, Dry, Shortness of breath, SOB with excertion, Wheezing, Hemoptysis, Pleuritic Pain, Sputum, Wheezing, Other Cardiovascular: No: Chest Pain, Palpitations, Orthopnea, Paroxysmal Noc. Dyspnea, Edema, Lt Headedness, Other Gastrointestinal: No: Nausea, Vomiting, Abdominal Pain, Diarrhea, Constipation, Melena, Hematochezia, Other Genitourinary: No Dysuria, No Frequency, No Incontinence, No Hematuria, No Retention, No Other Musculoskeletal: leg pain (right knee dressing ) Skin: No: Rash, Lesions, Jaundice, Bruising, Other Neurological: No: Weakness, Numbness, Incoordination, Change in speech, Confusion, Seizures, Other Allergies: Coded Allergies: No Known Allergies (Unverified , 11/05/20) Scheduled Ascorbic Acid (Vitamin C), 2 CAP PO QD, (Reported) Aspirin (Aspirin), 1 TAB PO DAILY, (Reported) Celecoxib (Celebrex), 1 CAP PO BID, (Reported) Cholecalciferol (Vitamin D3) (Vitamin D-400), 5,000 UNITS PO Q7D, (Reported) Citalopram Hydrobromide (Citalopram Hbr), 1 TAB PO DAILY, (Reported) Diltiazem Hcl (Cartia Xt), 1 CAP PO QD, (Reported) Esomeprazole Magnesium (Nexium), 1 CAP PO DAILY, (Reported) Ezetimibe (Zetia), 1 TAB PO DAILY24, (Reported) Hydrochlorothiazide (Hydrochlorothiazide), 1 TAB PO DAILY, (Reported) Losartan Potassium (Losartan Potassium), 1 TAB PO DAILY, (Reported) Nifedipine (Nifedipine Er), 1 TAB PO DAILY, (Reported) Rosuvastatin 10MG (Crestor 10MG), 1 TAB PO DAILY, (Reported) Thyroid,Pork ([employer] Thyroid), 1 TAB PO QD, (Reported) Vitamin B Complex (Vitamin B Complex), 1 EACH PO DAILY24, (Reported) Scheduled PRN Buspirone Hcl (Buspirone Hcl), 1 TAB PO BID PRN for ANXIETY, (Reported) Hydrocodone Bit/Acetaminophen ([place] 5-325), 1 TAB PO BID PRN for PAIN 4 - 6, (Reported) Tramadol Hcl (Tramadol Hcl), 1 TAB PO BID PRN for PAIN 4 - 6, (Reported) Objective Vitals and I/O Vital Sign - Last 24 Hours 11/11/20 11/11/20 07:51 08:22 Temp 97.7 Pulse 65 Resp 18 B/P (MAP) 174/79 (110) Pulse Ox 98 O2 Delivery Room Air Intake and Output 11/11/20 07:00 Intake Total 8060 ml Output Total 1200 ml Balance 6860 ml General: Alert, Oriented X3, Cooperative, No acute distress HEENT: Atraumatic, PERRLA, EOMI, Mucous membr. 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.) Neuro: Normal gait, Normal speech, Normal tone Psych/Mental Status: Mental status NL, Mood NL All Results(Lab/Rad) Current Medications Medications (Trade) Dose Ordered Sig/Lisa Route PRN Reason Start Time Stop Time Status Last Admin Dose Admin Mupirocin (Bactroban Ointment) 1 gm OT ONCE TP 11/10/20 06:00 11/10/20 10:22 DC 11/10/20 10:30 Sodium Chloride 100 ml @ ud STK-MED ONCE IV 11/08/20 12:18 11/08/20 12:18 DC Cefazolin Sodium (Ancef) 1 gm STK-MED ONCE .ROUTE 11/08/20 12:18 11/08/20 12:18 DC Sodium Chloride (Sodium Chloride Irr Bottle) 1,000 ml STK-MED ONCE IR 11/10/20 07:45 11/10/20 07:46 DC Sterile Water (Water) 1,000 ml STK-MED ONCE .ROUTE 11/10/20 07:45 11/10/20 07:46 DC Sodium Chloride 100 ml @ ud STK-MED ONCE IV 11/10/20 07:45 11/10/20 07:46 DC Sodium Chloride 250 ml @ ud STK-MED ONCE IV 11/10/20 07:46 11/10/20 07:46 DC Sodium Chloride (NS 3000ml Irr) 3,000 ml STK-MED ONCE IR 11/10/20 07:46 11/10/20 07:46 DC Lidocaine HCl (Lidocaine 2% Vial) 500 mg STK-MED ONCE .ROUTE 11/10/20 08:59 11/10/20 08:59 DC Ketorolac Tromethamine (Toradol) 30 mg STK-MED ONCE .ROUTE 11/10/20 08:59 11/10/20 08:59 DC Fentanyl Citrate (Sublimaze) 50 mcg STK-MED ONCE .ROUTE 11/10/20 09:00 11/10/20 09:01 DC Propofol (Diprivan) 200 mg STK-MED ONCE IV 11/10/20 09:01 11/10/20 09:01 DC Ondansetron HCl (Zofran) 4 mg STK-MED ONCE .ROUTE 11/10/20 09:01 11/10/20 09:02 DC Ropivacaine (Naropin 0.5% 5 Mg/ml Vial) 150 mg STK-MED ONCE .ROUTE 11/10/20 09:02 11/10/20 09:03 DC Tranexamic Acid (Tranexamic Acid) 1,000 mg STK-MED ONCE .ROUTE 11/10/20 09:03 11/10/20 09:03 DC Tramadol HCl (Ultram) 50 mg Q6H PO 11/10/20 09:00 12/10/20 08:59 Tramadol HCl (Ultram) 100 mg Q6H PRN PO PAIN 4 - 6 11/10/20 09:00 12/10/20 08:59 Rivaroxaban (Xarelto) 10 mg DAILY PO 11/11/20 09:00 12/11/20 08:59 Docusate Sodium (Colace) 100 mg DAILY PO 11/10/20 09:00 12/10/20 08:59 Throat Lozenges (Cepacol Sore Throat Lozenge) 1 each PRN PRN MM SORE THROAT 11/10/20 09:00 12/10/20 08:59 Famotidine (Pepcid) 20 mg DAILY PO 11/10/20 09:00 12/10/20 08:59 Cefazolin Sodium/ Dextrose (Ancef 2 Gm/D5W 50ml) 2 gm Q8 IV 11/10/20 14:00 11/10/20 12:00 DC Citalopram Hydrobromide (CeleXA) 10 mg DAILY PO 11/11/20 09:00 12/11/20 08:59 Diltiazem HCl (Cardizem Cd) 180 mg QD PO 11/10/20 09:30 11/10/20 14:44 DC EZETIMIBE (Zetia) 10 mg DAILY PO 11/10/20 09:30 12/10/20 09:29 Hydrochlorothiazide (Hydrochlorothiazide) 25 mg DAILY PO 11/11/20 09:00 12/11/20 08:59 Acetaminophen/ Hydrocodone Bitart ([place] 5mg) 1 ea BID PRN PO PAIN 4 - 6 11/10/20 09:30 12/10/20 09:29 Losartan Potassium (Cozaar) 100 mg DAILY PO 11/11/20 09:00 12/11/20 08:59 Nifedipine (Procardia) 30 mg DAILY PO 11/11/20 09:00 12/11/20 08:59 Rosuvastatin Calcium (Crestor) 10 mg DAILY PO 11/11/20 09:00 12/11/20 08:59 Thyroid ([place] Thyroid) 60 mg QD PO 11/10/20 09:30 11/10/20 14:43 DC Bupivacaine HCl/ Dextrose (Marcaine Spinal Ampul) 2 ml STK-MED ONCE IJ 11/10/20 09:30 11/10/20 09:30 DC Celecoxib (Celebrex) 400 mg OT ONCE PO 11/10/20 10:00 11/10/20 10:22 DC 11/10/20 11:04 Gabapentin (Neurontin) 600 mg OT ONCE PO 11/10/20 10:00 11/10/20 10:35 DC 11/10/20 11:04 Tramadol HCl (Ultram) 100 mg OT ONCE PO 11/10/20 10:00 11/10/20 10:36 DC 11/10/20 11:05 Acetaminophen (Tylenol) 1,000 mg OT ONCE PO 11/10/20 10:00 11/10/20 11:36 DC 11/10/20 11:05 Cefazolin Sodium/ Dextrose 50 ml @ 50 mls/hr Q8 IV 11/10/20 20:00 11/11/20 06:59 Ketorolac Tromethamine (Toradol) 30 mg Q6H PRN IV PAIN 7 - 10 11/10/20 15:00 11/15/20 14:59 Acetaminophen (Tylenol) 1,000 mg Q6HR PO 11/10/20 18:00 12/10/20 17:59 Thyroid ([place] Thyroid) 60 mg DAILY PO 11/11/20 09:00 12/10/20 09:29 Diltiazem HCl (Cardizem Cd) 180 mg DAILY PO 11/11/20 09:00 12/10/20 09:29 Course Sepsis Screening Results: Posi: NEGATIVE Sepsis Qualifier/Stage: NO DEFINITE RISK Vitals & review Data Vital Sign - Last 24 Hours 11/10/20 11/10/20 11/10/20 11/10/20 09:58 09:58 14:28 14:38 Temp 97.6 97.2 Pulse 60 66 Resp 16 18 18 B/P (MAP) 156/65 (95) 162/76 (104) 165/90 (115) Pulse Ox 98 98 98 O2 Delivery Room Air Room Air Room Air Room Air 11/10/20 11/10/20 14:48 14:58 Pulse 66 65 Resp 18 18 B/P (MAP) 165/98 (120) 143/90 (107) Pulse Ox 98 97 O2 Delivery Room Air Room Air Current Medications Medications (Trade) Dose Ordered Sig/Lisa PRN Reason Start Time Stop Time Status Last Admin Acetaminophen (Tylenol) 1,000 mg Q6HR 11/10/20 18:00 12/10/20 17:59 Acetaminophen/ Hydrocodone Bitart ([place] 5mg) 1 ea BID PRN PAIN 4 - 6 11/10/20 09:30 12/10/20 09:29 Cefazolin Sodium/ Dextrose 50 ml @ 50 mls/hr Q8 11/10/20 20:00 11/11/20 06:59 Citalopram Hydrobromide (CeleXA) 10 mg DAILY 11/11/20 09:00 12/11/20 08:59 Diltiazem HCl (Cardizem Cd) 180 mg DAILY 11/11/20 09:00 12/10/20 09:29 Docusate Sodium (Colace) 100 mg DAILY 11/10/20 09:00 12/10/20 08:59 EZETIMIBE (Zetia) 10 mg DAILY 11/10/20 09:30 12/10/20 09:29 Famotidine (Pepcid) 20 mg DAILY 11/10/20 09:00 12/10/20 08:59 Hydrochlorothiazide (Hydrochlorothiazide) 25 mg DAILY 11/11/20 09:00 12/11/20 08:59 Ketorolac Tromethamine (Toradol) 30 mg Q6H PRN PAIN 7 - 10 11/10/20 15:00 11/15/20 14:59 Losartan Potassium (Cozaar) 100 mg DAILY 11/11/20 09:00 12/11/20 08:59 Nifedipine (Procardia) 30 mg DAILY 11/11/20 09:00 12/11/20 08:59 Rivaroxaban (Xarelto) 10 mg DAILY 11/11/20 09:00 12/11/20 08:59 Rosuvastatin Calcium (Crestor) 10 mg DAILY 11/11/20 09:00 12/11/20 08:59 Throat Lozenges (Cepacol Sore Throat Lozenge) 1 each PRN PRN SORE THROAT 11/10/20 09:00 12/10/20 08:59 Thyroid ([place] Thyroid) 60 mg DAILY 11/11/20 09:00 12/10/20 09:29 Tramadol HCl (Ultram) 50 mg Q6H 11/10/20 09:00 12/10/20 08:59 Tramadol HCl (Ultram) 100 mg Q6H PRN PAIN 4 - 6 11/10/20 09:00 12/10/20 08:59 LEVEL 1 SEPSIS INFECTION CRITE: Recent Invasive Procedure O2 Sat by Pulse Oximetry: 98 Assessment/Plan Assessment/Plan Problems: (1) Osteoarthritis of right knee Status: Chronic ICD Code: M17.11 - Unilateral primary osteoarthritis, right knee SNOMED: [id number] Plan Right knee OA- right total knee arthroplasty POD #1 continue medications as prescribed PT/OT eval and treat. WBAT RLE, CPM, walker monitor incision monitor pain fall and safety precautions Problem Qualifiers (1) Osteoarthritis of right knee: Osteoarthritis type: primary Qualified Codes: M17.11 - Unilateral primary osteoarthritis, right knee GHULAM HUTCHINSON NP Nov 11, 2020 08:38
[2020-11-11] MEDS ORDERED: CRESTOR PO SCH ×2 (09:00→21:00)
[2020-11-11] MEDS: ZETIA PO SCH (09:23)
[2020-11-11] MEDS: CeleXA PO SCH (09:23)
[2020-11-11] MEDS: CARDIZEM CD PO SCH (09:24)
[2020-11-11] MEDS: HYDROCHLOROTHIAZIDE PO SCH (09:24)
[2020-11-11] MEDS: XARELTO PO SCH (09:24)
[2020-11-11] MEDS: COLACE PO SCH (09:25)
[2020-11-11] MEDS: PEPCID PO SCH (09:25)
[2020-11-11] MEDS: PROCARDIA PO SCH (09:25)
[2020-11-11] MEDS: COZAAR PO SCH (09:25)
[2020-11-11] MEDS: ARMOUR THYROID PO SCH (09:26)
[2020-11-11 12:33] VITALS: BP 172/88
[2020-11-11 17:57] VITALS: BP 158/74
[2020-11-11 20:45] VITALS: BP 166/85
[2020-11-11] MEDS ORDERED: CRESTOR PO ONE (21:32)
[2020-11-12 00:45] VITALS: BP 137/65
[2020-11-12 04:00] VITALS: BP 132/75
[2020-11-12] MEDS: ULTRAM PO SCH ×2 (04:11→08:57)
[2020-11-12 04:31] LABS: RED CELL DISTRIBUTION WIDTH 12.3 % (11.5-14.5)
[2020-11-12] MEDS: TYLENOL PO SCH (05:31)
[2020-11-12] MEDS: LACTATED RINGERS 1,000 ML IV SCH (07:45)
[2020-11-12] MEDS: HYDROCHLOROTHIAZIDE PO SCH (08:49)
[2020-11-12] MEDS: CeleXA PO SCH (08:49)
[2020-11-12] MEDS: COZAAR PO SCH (08:49)
[2020-11-12] MEDS: PEPCID PO SCH (08:49)
[2020-11-12] MEDS: COLACE PO SCH (08:49)
[2020-11-12] MEDS: PROCARDIA PO SCH (08:50)
[2020-11-12] MEDS: CARDIZEM CD PO SCH (08:50)
[2020-11-12] MEDS: ZETIA PO SCH (08:50)
[2020-11-12] MEDS: XARELTO PO SCH (08:50)
[2020-11-12 08:51] VITALS: BP 169/83
[2020-11-12] MEDS: ARMOUR THYROID PO SCH (08:51)
[2020-11-12] MEDS ORDERED: TRAM50TA PO (09:06)
[2020-11-12] MEDS ORDERED: ASPI-667 PO (09:06)
--- NOTE | 2020-11-12 09:14 | PRM.DC ---
Discharge Summary Date of Discharge: Nov 12, 2020 Time of Request to Discharge: 09:06 Additional Comments patient sitting in bed pain controlled right knee dressing intact, WBAT Patient History: Congestive heart failure G8 MOTHER, , Age:60 years and older FH: breast cancer G8 SISTER FH: congenital heart problem G8 SISTER No known health problems G8 SISTER 19 CHILD 19 CHILD No Family History of: Alzheimer's disease Asthma Cerebrovascular disorder Chronic obstructive pulmonary disease Diabetes insipidus Diabetes mellitus Hypertension Parkinson's disease General: Alert, Oriented X3, Cooperative, No acute distress HEENT: Atraumatic, PERRLA, EOMI, Mucous membr. moist/pink Neck: Supple, No JVD, No thyromegaly Lungs: Clear to auscultation Heart: Regular rate Abdomen: Normal bowel sounds, Soft, No tenderness Extremities: No clubbing, No cyanosis, No edema, Normal pulses, Other Skin: No rashes, No breakdown, No significant lesion Neuro: Normal gait, Normal speech, Strength at 5/5 X4 ext Psych/Mental Status: Mental status NL, Mood NL Scheduled Ascorbic Acid (Vitamin C), 2 CAP PO QD, (Reported) Aspirin (Aspirin), 1 TAB PO DAILY Celecoxib (Celebrex), 1 CAP PO BID, (Reported) Cholecalciferol (Vitamin D3) (Vitamin D-400), 5,000 UNITS PO Q7D, (Reported) Citalopram Hydrobromide (Citalopram Hbr), 1 TAB PO DAILY, (Reported) Diltiazem Hcl (Cartia Xt), 1 CAP PO QD, (Reported) Esomeprazole Magnesium (Nexium), 1 CAP PO DAILY, (Reported) Ezetimibe (Zetia), 1 TAB PO DAILY24, (Reported) Hydrochlorothiazide (Hydrochlorothiazide), 1 TAB PO DAILY, (Reported) Losartan Potassium (Los[place] Potassium), 1 TAB PO DAILY, (Reported) Nifedipine (Nifedipine Er), 1 TAB PO DAILY, (Reported) Rosuvastatin 10MG (Crestor 10MG), 1 TAB PO DAILY, (Reported) Thyroid,Pork ([employer]ill [employer] Thyroid), 1 TAB PO QD, (Reported) Tramadol Hcl (Tramadol Hcl), 50 MG PO Q6H Vitamin B Complex (Vitamin B Complex), 1 EACH PO DAILY24, (Reported) Scheduled PRN Buspirone Hcl (Buspirone Hcl), 1 TAB PO BID PRN for ANXIETY, (Reported) Hydrocodone Bit/Acetaminophen ([place] 5-325), 1 TAB PO BID PRN for PAIN 4 - 6, (Reported) Tramadol Hcl (Tramadol Hcl), 1 TAB PO BID PRN for PAIN 4 - 6, (Reported) Sepsis Evaluation @ Discharge Vital Sign - Last 24 Hours 11/10/20 11/10/20 11/10/20 11/10/20 09:58 09:58 14:28 14:38 Temp 97.6 97.2 Pulse 60 66 Resp 16 18 18 B/P (MAP) 156/65 (95) 162/76 (104) 165/90 (115) Pulse Ox 98 98 98 O2 Delivery Room Air Room Air Room Air Room Air 11/10/20 11/10/20 14:48 14:58 Pulse 66 65 Resp 18 18 B/P (MAP) 165/98 (120) 143/90 (107) Pulse Ox 98 97 O2 Delivery Room Air Room Air Current Medications Medications (Trade) Dose Ordered Sig/Lisa PRN Reason Start Time Stop Time Status Last Admin Acetaminophen (Tylenol) 1,000 mg Q6HR 11/10/20 18:00 12/10/20 17:59 Acetaminophen/ Hydrocodone Bitart ([place] 5mg) 1 ea BID PRN PAIN 4 - 6 11/10/20 09:30 12/10/20 09:29 Cefazolin Sodium/ Dextrose 50 ml @ 50 mls/hr Q8 11/10/20 20:00 11/11/20 06:59 Citalopram Hydrobromide (CeleXA) 10 mg DAILY 11/11/20 09:00 12/11/20 08:59 Diltiazem HCl (Cardizem Cd) 180 mg DAILY 11/11/20 09:00 12/10/20 09:29 Docusate Sodium (Colace) 100 mg DAILY 11/10/20 09:00 12/10/20 08:59 EZETIMIBE (Zetia) 10 mg DAILY 11/10/20 09:30 12/10/20 09:29 Famotidine (Pepcid) 20 mg DAILY 11/10/20 09:00 12/10/20 08:59 Hydrochlorothiazide (Hydrochlorothiazide) 25 mg DAILY 11/11/20 09:00 12/11/20 08:59 Ketorolac Tromethamine (Toradol) 30 mg Q6H PRN PAIN 7 - 10 11/10/20 15:00 11/15/20 14:59 Losartan Potassium (Cozaar) 100 mg DAILY 11/11/20 09:00 12/11/20 08:59 Nifedipine (Procardia) 30 mg DAILY 11/11/20 09:00 12/11/20 08:59 Rivaroxaban (Xarelto) 10 mg DAILY 11/11/20 09:00 12/11/20 08:59 Rosuvastatin Calcium (Crestor) 10 mg DAILY 11/11/20 09:00 12/11/20 08:59 Throat Lozenges (Cepacol Sore Throat Lozenge) 1 each PRN PRN SORE THROAT 11/10/20 09:00 12/10/20 08:59 Thyroid ([place] Thyroid) 60 mg DAILY 11/11/20 09:00 12/10/20 09:29 Tramadol HCl (Ultram) 50 mg Q6H 11/10/20 09:00 12/10/20 08:59 Tramadol HCl (Ultram) 100 mg Q6H PRN PAIN 4 - 6 11/10/20 09:00 12/10/20 08:59 Course Sepsis Screening Results: Posi: NEGATIVE Sepsis Qualifier/Stage: NO DEFINITE RISK Vitals & review Data Vital Sign - Last 24 Hours 11/10/20 11/10/20 11/10/20 11/10/20 09:58 09:58 14:28 14:38 Temp 97.6 97.2 Pulse 60 66 Resp 16 18 18 B/P (MAP) 156/65 (95) 162/76 (104) 165/90 (115) Pulse Ox 98 98 98 O2 Delivery Room Air Room Air Room Air Room Air 11/10/20 11/10/20 14:48 14:58 Pulse 66 65 Resp 18 18 B/P (MAP) 165/98 (120) 143/90 (107) Pulse Ox 98 97 O2 Delivery Room Air Room Air Current Medications Medications (Trade) Dose Ordered Sig/Lisa PRN Reason Start Time Stop Time Status Last Admin Acetaminophen (Tylenol) 1,000 mg Q6HR 11/10/20 18:00 12/10/20 17:59 Acetaminophen/ Hydrocodone Bitart ([place] 5mg) 1 ea BID PRN PAIN 4 - 6 3/8/21 09:30 12/10/20 09:29 Cefazolin Sodium/ Dextrose 50 ml @ 50 mls/hr Q8 11/10/20 20:00 11/11/20 06:59 Citalopram Hydrobromide (CeleXA) 10 mg DAILY 11/11/20 09:00 12/11/20 08:59 Diltiazem HCl (Cardizem Cd) 180 mg DAILY 11/11/20 09:00 12/10/20 09:29 Docusate Sodium (Colace) 100 mg DAILY 11/10/20 09:00 12/10/20 08:59 EZETIMIBE (Zetia) 10 mg DAILY 11/10/20 09:30 12/10/20 09:29 Famotidine (Pepcid) 20 mg DAILY 11/10/20 09:00 12/10/20 08:59 Hydrochlorothiazide (Hydrochlorothiazide) 25 mg DAILY 11/11/20 09:00 12/11/20 08:59 Ketorolac Tromethamine (Toradol) 30 mg Q6H PRN PAIN 7 - 10 11/10/20 15:00 11/15/20 14:59 Losartan Potassium (Cozaar) 100 mg DAILY 11/11/20 09:00 12/11/20 08:59 Nifedipine (Procardia) 30 mg DAILY 11/11/20 09:00 12/11/20 08:59 Rivaroxaban (Xarelto) 10 mg DAILY 11/11/20 09:00 12/11/20 08:59 Rosuvastatin Calcium (Crestor) 10 mg DAILY 11/11/20 09:00 12/11/20 08:59 Throat Lozenges (Cepacol Sore Throat Lozenge) 1 each PRN PRN SORE THROAT 11/10/20 09:00 12/10/20 08:59 Thyroid ([place] Thyroid) 60 mg DAILY 11/11/20 09:00 12/10/20 09:29 Tramadol HCl (Ultram) 50 mg Q6H 11/10/20 09:00 12/10/20 08:59 Tramadol HCl (Ultram) 100 mg Q6H PRN PAIN 4 - 6 11/10/20 09:00 12/10/20 08:59 LEVEL 1 SEPSIS INFECTION CRITE: Recent Invasive Procedure LEVEL 2-SIRS (LIST ALL THAT AP: None/Not assessed Cardiovascular Evidence: Not Assessed or None Hematologic Evidence: None/Not assessed Hepatic Evidence: None/Not assessed Metabolic Evidence: None/Not assessed Neurological Evidence: None/Not assessed Respiratory Evidence: None/Not assessed Renal Evidence: None/Not assessed O2 Sat by Pulse Oximetry: 95 Plan Problems: (1) Osteoarthritis of right knee Status: Chronic ICD Code: M17.11 - Unilateral primary osteoarthritis, right knee SNOMED: [id number] Discharge Date: Nov 12, 2020 Discharge Disposition: Stable Plan discharge patient home right knee dressing intact PT ordered for outpatient continue medications, ASA 81 mg BID x30 days, PRN Tramadol DVT prophylaxis- ASA 81 mg BID follow up with Dr Gonzalez on Friday 11/17 Problem Qualifiers (1) Osteoarthritis of right knee: Osteoarthritis type: primary Qualified Codes: M17.11 - Unilateral primary osteoarthritis, right knee GHULAM HUTCHINSON NP Nov 12, 2020 09:14
[2020-11-12 10:26] VITALS: BP 169/83
== END 2020-11-12 11:26 | disposition home or self-care (01) | DRG 470 ==
LOC: MS 08:59
PROVIDERS: ADMIT Orthopaedic Surgery; ATTEND Orthopaedic Surgery
PROC: 0SRC0J9 Replacement of Right Knee Joint with Synthetic Substitute, Cemented, Open Approach (ICD-10-PCS; principal; 2020-11-10 11:57)
DX: M17.11 Unilateral primary osteoarthritis, right knee (principal); Z80.3 Family history of malignant neoplasm of breast; Z79.82 Long term (current) use of aspirin; Z79.899 Other long term (current) drug therapy; Z82.49 Family history of ischemic heart disease and other diseases of the circulatory system
CPT/HCPCS: 36415; 73560; 80053; 85025; 85027; 87070; 93005; 97161; 97165; A4217; C1713; C1776; G0378; J0690; J1100; J1885; J2001; J2250; J2405; J2795; J3010; J3490; J7050; J7120; 97110-GP; 97116-GP; 97530-GP; 97760-GP; C9290; J8499